=== PATIENT | male | born 2000 | race Caucasian/White ===

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

== ENCOUNTER 2021-01-25 11:33 | Emergency (ER) | payer BC, MEDICAID ==
[2021-01-25 12:01] VITALS: BP 134/77; PULSE 101
--- NOTE | 2021-01-25 12:56 | CR ---
Left knee: AP and lateral views of the left knee were obtained. Comparison: No prior knee study is available. Medial and lateral joint spaces are maintained in height. No joint effusion is seen. No fracture or other abnormality is appreciated. Impression: 1. Unremarkable two-view left knee exam. Diagnostic code #1
--- NOTE | 2021-01-25 12:56 | CR ---
Right fifth finger: 3 view centered to the right fifth finger were obtained. Comparison: No previous finger study is available. Finger is held in flexion. Please exclude any soft tissue injury. No acute fracture, dislocation or other bony abnormality is appreciated. Impression: 1. Finger held in flexion. Please exclude any soft tissue injury. 2. No acute bony abnormality is seen. Diagnostic code #2
--- NOTE | 2021-01-25 13:25 | EDM.PDOC ---
ED HPI GENERAL MEDICAL PROBLEM - General Chief Complaint: Lower Extremity Injury/Pain Stated Complaint: HAND AND KNEE INJURY Time Seen by Provider: 01/25/21 11:48 Source of Information: Reports: Patient, RN Notes Reviewed History Limitations: Reports: No Limitations - History of Present Illness INITIAL COMMENTS - FREE TEXT/NARRATIVE: Patient is a 20-year-old male presenting to the emergency department with complaints of pain to his left knee and right fifth finger. Reports he was working on a transmission when he dropped on his knee. Somewhere in the process of dropping, he injured his right fifth finger as well. He has been unable to bear weight on the extremity since the time of the injury. Denies any numbness distal to the injury. There is no chronic medical conditions. Treatments [employer]: Reports: Other (see below) Right Finger-Little Pain Score (Numeric/FACES): 10 Left Knee Pain Score (Numeric/FACES): 9 - Related Data Allergies Allergy/AdvReac Type Severity Reaction Status Date / Time No Known Allergies Allergy Verified 11/02/16 14:08 Home Meds: Home Meds guanFACINE 1 mg PO BID 11/02/16 [History] Past Medical History Genitourinary History: Reports: Other (See Below) Other Genitourinary History: undescended testicle Psychiatric History: Reports: Depression, Mood Swings - Infectious Disease History Infectious Disease History: Reports: None Social & Family History - Tobacco Use Tobacco Use Status *Q: Former Tobacco User Years of Tobacco use: 2 Packs/Tins Daily: 0.2 Used Tobacco, but Quit: No - Caffeine Use Caffeine Use: Reports: Coffee - Recreational Drug Use Recreational Drug Use: No - Living Situation & Occupation Living situation: Reports: with Family Occupation: Student (Both parents are at home.) Review of Systems - Review of Systems Review Of Systems: Comprehensive ROS is negative, except as noted in HPI. ED EXAM, GENERAL - Physical Exam Exam: See Below Exam Limited By: No Limitations General Appearance: Alert, WD/WN, No Apparent Distress Respiratory/Chest: No Respiratory Distress, Lungs Clear, Normal Breath Sounds, No Accessory Muscle Use, Chest Non-Tender Cardiovascular: Normal Peripheral Pulses, Regular Rate, Rhythm, No Edema, No Gallop, No JVD, No Murmur, No Rub Extremities: Other (Tenderness to palpation throughout the anterior and posterior portion of the left knee. No obvious ecchymosis, swelling, or deformity. He is able to lift the leg off the bed without difficulty. Unable to bend the knee without significant pain. Right fifth finger is stuck in the flexed position. ) Neurological: Alert, Oriented, CN II-XII Intact, Normal Cognition, Normal Reflexes, No Motor/Sensory Deficits Psychiatric: Normal Affect, Normal Mood Skin Exam: Warm, Dry, Intact, Normal Color, No Rash Course - Vital Signs Last Recorded V/S: Last Vital Signs Temp 99.7 F 01/25/21 11:59 Pulse 101 H 01/25/21 11:59 Resp 20 01/25/21 11:59 BP 134/77 01/25/21 11:59 Pulse Ox 99 01/25/21 11:59 - Re-Assessments/Exams Free Text/Narrative Re-Assessment/Exam: Patient is a 20-year-old male presenting to the emergency department with complaints of pain to his left knee and right fifth finger after dropping a transmission. On exam, there is tenderness palpation of the left knee with no obvious swelling or deformity. He is able to lift the leg off of the bed without difficulty indicating that the quadricep tendon is intact. Right fifth finger is maintained in the flexed position. There are no open areas. Have ordered x-rays of the left knee and right fifth finger. 01/25/21 13:24 X-rays of the left knee and right fifth finger show no bony abnormalities. Finger is held in the flexed position. I am able to straighten the finger without difficulty, however once released it does return to the flex position. Case was discussed with hand specialist, Dr. Trinidad. He recommended that we splint the finger and have him follow-up with him tomorrow between 10 and 12 central time. They will contact him with regards to the appointment. Aluminum splint was applied using Coban. I have ordered knee immobilizer to stabilize the left knee as well as crutches. Discussed that if he still having si gnificant pain after 1 week, he should follow-up with orthopedist, Dr. López. Referral has been sent for this as well. He denies the need for pain medications. Discharge instructions as document. Departure - Departure Time of Disposition: 13:30 Disposition: Home, Self-Care 01 Condition: Good Clinical Impression: Knee pain, left Qualifiers: Chronicity: acute Qualified Code(s): M25.562 - Pain in left knee Finger injury Qualifiers: Encounter type: initial encounter Laterality: right Qualified Code(s): S69.91XA - Unspecified injury of right wrist, hand and finger(s), initial encounter - Discharge Information *PRESCRIPTION DRUG MONITORING PROGRAM REVIEWED*: No *COPY OF PRESCRIPTION DRUG MONITORING REPORT IN PATIENT [place]: No Instructions: Acute Knee Pain, Adult Referrals: Danilo Trinidad MD [Ordering Only Provider] - Edinson López MD [Physician] - Forms: ED Department Discharge, ED Return to Work/School Form Additional Instructions: You were seen in the emergency department today for pain to your left knee and right little finger after dropping a transmission. X-rays were completed of both areas and showed no bony abnormalities. You have likely contused your knee and torn your flexor tendon in your right fifth finger. You have been provided with a knee immobilizer. Wear this at all times until pain improves. R ecommend intermittent ice and elevation. You may use Tylenol and ibuprofen as needed for discomfort. Use crutches as needed to walk. Arrangements have been made for you to see hand specialist, Dr. Trinidad, at [facility] [place] tomorrow between 10 AM and 12 PM central time. They will be in contact with you today. If you are still having significant pain to your left knee after 1 week, recommend follow-up with orthopedist, Dr. López. Return to ER for new or worsening symptoms of concern.
== END 2021-01-25 14:45 | disposition home or self-care (01) ==
LOC: JD.ED 11:33 → SUPCPDRO 11:33 → JD.ED 14:45
DX: S69.91XA Unspecified injury of right wrist, hand and finger(s), initial encounter (principal); M25.562 Pain in left knee; Z87.891 Personal history of nicotine dependence; X50.9XXA Other and unspecified overexertion or strenuous movements or postures, initial encounter
CPT/HCPCS: 73140-26-F9; 73140-F9; 73560-26-LT; 73560-LT; 99283-25

== ENCOUNTER 2021-08-09 23:19 | Emergency (ER) | payer MEDICAID ==
[2021-08-10 00:09] VITALS: BP 119/74; PULSE 119
== END 2021-08-10 00:04 | disposition home or self-care (01) ==
LOC: JD.ED 23:19
DX: T37.8X2A Poisoning by other specified systemic anti-infectives and antiparasitics, intentional self-harm, initial encounter (principal); T39.312A Poisoning by propionic acid derivatives, intentional self-harm, initial encounter; F10.129 Alcohol abuse with intoxication, unspecified; Z72.0 Tobacco use; Z28.310 Unvaccinated for COVID-19
CPT/HCPCS: 99283

== ENCOUNTER 2022-10-07 14:15 | Emergency (ER) | payer SELFPAY ==
[2022-10-07 18:20] VITALS: BP 135/81; PULSE 75
== END 2022-10-07 18:15 | disposition home or self-care (01) ==
LOC: JD.ED 14:15
DX: S00.83XA Contusion of other part of head, initial encounter (principal); W22.8XXA Striking against or struck by other objects, initial encounter
CPT/HCPCS: 70450; 70450-26; 70486; 70486-26; 99282; 99283